=== PATIENT | female | born 1965 | race Hispanic/Latino ===

== ENCOUNTER 2018-03-22 18:09 | Observation (INO) | payer BC ==
[~2018-03-22] VITALS: Ht 154.9 cm; Wt 93.2 kg
[2018-03-22] MEDS ORDERED: KETOROLAC TROMETHAMINE 30 MG/ML VIAL IV STA (19:28)
[2018-03-22] MEDS ORDERED: ALBUTEROL/IPRATROPIUM 3 ML NEB NEB ONE (19:30)
--- NOTE | 2018-03-22 20:19 | Diagnostic Imaging Report ---
EXAM: XR CHEST 2 VIEWS DATE: 03/22/2018 12:00 AM INDICATION: Cough COMPARISON: None FINDINGS: Lines and Tubes: None Heart and Mediastinum: No acute cardiomediastinal findings. Lungs and Pleura: No significant pleural effusion, pneumothorax, or focal consolidation. Minimal opacities in the lung bases statistically represent atelectasis, however, infectious process could have a similar appearance. Bones and Soft Tissues: No acute findings. IMPRESSION: 1. No acute cardiopulmonary findings. Signed by: Dr. Raul Burger MD on 03/22/2018 8:15 PM
[2018-03-22] MEDS ORDERED: CEFTRIAXONE SOD 1 GM/NS 50 ML 50 ML IV ONE (21:15)
[2018-03-22] MEDS ORDERED: POTASSIUM CHLORIDE 10MEQ EA PO ONE (21:30)
[2018-03-22] MEDS ORDERED: ONDANSETRON HCL INJ 2MG/ML 2ML 2 MG/ML VIAL IV PRN (22:15)
--- OUTSIDE RECORDS SUMMARY | 2018-03-22 22:23 | XMS REPORT ---
Author [facility] Address Unknown Phone Unavailable Care Team Providers Care Interior Assemblies Developer Prover Name Role Phone Luis Fernando JOHNSON Unavailable Unavailable Problems This patient has no known problems. Allergies, Adverse Reactions, Alerts This patient has no known allergies or adverse reactions. Medications This patient has no known medications. Results Test Description Test Time Test Comments Text Results Atomic Results Result Comments CXR 2 VIEW - HOPD 2018-03-22 20:15:00 [place] [address] Patient Name: DORENE GRIGGS MR #: [id number] : 1965 Age/Sex: 52/F Req #: [id number] Adm Physician: Ordered by: KRISTINA JOHNSON MD Report #: [id number] Location: [facility] Room/Bed: Procedure: [id number] HOPD/CXR 2 VIEW - HOPD Exam Date: 03/22/18 Exam Time: 2002 REPORT STATUS: Signed EXAM: XR CHEST 2 VIEWS DATE: 03/22/2018 12:00 AM INDICATION: Cough COMPARISON: None FINDINGS: Lines and Tubes: None Heart and Mediastinum: No acute cardiomediastinal findings. Lungs and Pleura: No significant pleural effusion, pneumothorax, or focal consolidation. Minimal opacities in the lung bases statistically represent atelectasis, however, infectious process could have a similar appearance. Bones and Soft Tissues: No acute findings. IMPRESSION: 1. No acute cardiopulmonary findings. Signed by: Dr. Raul Bonilla MD on 03/22/2018 8:15 PM Dictated By: RAUL BONILLA MD 14 Transcribed By: TABBY on 03/22/182014 COPY TO: KRISTINA JOHNSON MD
[2018-03-22] MEDS ORDERED: LOVASTATIN40 MG PO (22:44)
[2018-03-22] MEDS ORDERED: METFORMIN HCL500 MG PO (22:44)
[2018-03-22] MEDS ORDERED: ATENOLOL50 MG PO (22:44)
[2018-03-22] MEDS ORDERED: PAXIL20 MG PO (22:44)
[2018-03-22 22:45] VITALS: BP 125/57
[2018-03-22] MEDS ORDERED: SINGULAIR10 MG (22:48)
[2018-03-22] MEDS ORDERED: CLONAZEPAM1 MG PO (22:48)
[2018-03-22] MEDS ORDERED: trulicity PO (22:48)
--- NOTE | 2018-03-22 23:22 | NUR ---
PT ARRIVED @ THE UNIT [facility] IN A STRETCHER WITH C/O COUGH AND BACK PAIN.ASSESSMENT DONE.AAOX4.NO RESP.DISTRESS.BACK PAIN VOICED 09/20 .IV LAC PATENT.TELE #9 PLACED.BED LOCKED AND IN LOWEST POSITION.ORIENTED TO THE UNIT.PHONE AND CALL LIGHT WITHIN REACH.INSTRUCTED TO CALL FOR ASSISTANCE NEEDED .
[2018-03-22 23:24] VITALS: BP 125/57
--- NOTE | 2018-03-22 23:26 | Diagnostic Imaging Report ---
EXAM: CTA Chest WITH contrast / Pulmonary Embolus Study INDICATION: Pain COMPARISON: None. TECHNIQUE: Angiogram of the chest was obtained using a multidetector helical scanner after administration of IV contrast. Coronal and sagittal reformations were obtained. Pulmonary embolus protocol. IV CONTRAST: 100 mL Isovue-370 COMPLICATIONS: None RADIATION DOSE: Total DLP: 582 mGy*cm Estimated effective dose: (DLP x 0.015 x size factor) mSv CTDIvol has been reviewed. It is below the limits set by the Radiation Protocol Committee (RPC). Appropriate CT dose reduction techniques were utilized. FINDINGS: Lines and Tubes: None. Lower Neck: The visualized thyroid gland is grossly unremarkable with no suspicious or significant nodule identified. Heart and Great Vessels: The aorta and main pulmonary artery measure 36 and 27 mm. respectively. No pulmonary embolus. Lymph Nodes: No suspicious adenopathy. Lungs: Moderate mosaic attenuation with scattered groundglass opacities. No pneumothorax or focal consolidation. Mild septal thickening. Concavity posterior wall trachea consistent with expiratory imaging. Upper abdomen: Enlarged liver with steatosis. Bones and Soft Tissues: No acute findings. IMPRESSION: 1. No pulmonary embolus. 2. Mosaic attenuation likely combination of expiratory imaging and obesity-related hypoventilation syndrome. 3. Steatosis with hepatomegaly. Signed by: Dr. Raul Burger MD on 03/22/2018 11:23 PM
[2018-03-22] MEDS: KCL 20MEQ/.9 SOD CHL 1,000 ML IV SCH (23:45)
[2018-03-22] MEDS: AZITHROMYCIN 500MG/NS 250 ML 250 ML IV SCH (23:46)
[2018-03-22 23:50] VITALS: BP 125/57
[2018-03-23] MEDS ORDERED: ALBUTEROL/IPRATROPIUM 3 ML NEB NEB PRN (00:15)
[2018-03-23] MEDS ORDERED: INFLUENZA VIRUS VAC SPLIT INJ 0.5 ML SYR IM SCH (00:23)
[2018-03-23] MEDS: KETOROLAC TROMETHAMINE 30 MG/ML VIAL IV PRN ×3 (01:01→21:05)
[2018-03-23 05:35] LABS: BASOPHILS # (AUTO) 0.1 (0.0-0.1); EOSINOPHILS # (AUTO) 0.1 (0.0-0.4); EOSINOPHILS % 1.4 % (0.0-6.0); HEMATOCRIT 37.1 % (34.2-44.1); HEMOGLOBIN 12.5 g/dL (12.0-16.0); LYMPHOCYTES # (AUTO) 3.2 (1.0-3.2); LYMPHOCYTES % 39.1 % (18.0-39.1); MEAN CORPUSCULAR HEMOGLOBIN 28.2 pg (28-32); MEAN CORPUSCULAR HGB CONC 33.7 g/dL (31-35); MEAN CORPUSCULAR VOLUME 83.7 fL (81-99); MONOCYTES # (AUTO) 0.7 (0.2-0.8); MONOCYTES % 8.2 % (4.4-11.3); NEUTROPHILS % 50.1 % (38.7-80.0); PLATELET COUNT 183 x10e3/uL (140-360); RED BLOOD COUNT 4.43 x10e6/uL (3.6-5.1); RED CELL DISTRIBUTION WIDTH 14.8 % (11.7-14.4)
[2018-03-23 05:53] LABS: ALANINE AMINOTRANSFERASE 11 IU/L (0-55); ALBUMIN 3.1 g/dL (3.5-5.0); ALKALINE PHOSPHATASE 78 IU/L (40-150); ANION GAP 15.3 mmol/L (8-16); BLOOD UREA NITROGEN 16 mg/dL (7-26); BUN/CREATININE RATIO 21 (6-25); CALCIUM 8.8 mg/dL (8.4-10.2); CARBON DIOXIDE 27 mmol/L (22-29); CHLORIDE 102 mmol/L (98-107); CREATININE, SERUM 0.78 mg/dL (0.57-1.11); EST GLOMERULAR FILTRATION RATE > 60 ML/MIN (60-); GLUCOSE 147 mg/dL (74-118); MAGNESIUM 1.8 MG/DL (1.3-2.1); POTASSIUM 3.3 mmol/L (3.5-5.1); SODIUM 141 mmol/L (136-145)
[2018-03-23] MEDS ORDERED: PNEUMOCOCCAL VACCINE POLYVALENT 23 MCG/0.5 ML VIAL IM SCH (06:06)
[2018-03-23] MEDS ORDERED: POTASSIUM CHLORIDE 10MEQ EA PO ONE (07:00)
--- NOTE | 2018-03-23 07:03 | NUR ---
REPORT GIVEN TO THE ONCOMING RN.WALKING ROUNDS DONE.STABLE CONDITION.
[2018-03-23] MEDS: CEFTRIAXONE SOD 1 GM/NS 50 ML 50 ML IV SCH (08:20)
[2018-03-23 08:22] VITALS: BP 143/75
[2018-03-23 08:39] VITALS: BP 143/75
--- NOTE | 2018-03-23 09:05 | NUR ---
DR. RIGO HIGH. ORDERS REC'D. CALL PLACED TO DR. BIRMIGNHAM TO NOTIFY OF NEW CONSULTATION FOR ABD PAIN AND DIARRHEA.
[2018-03-23] MEDS ORDERED: METFORMIN HCL 500 MG TAB PO SCH (09:30)
--- NOTE | 2018-03-23 09:30 | NUR ---
METFORMIN NOT ADMINISTERED BECAUSE PT HAD IV CONTRAST 0N 03/22/18 @2200.
[2018-03-23] MEDS: KCL 20MEQ/.9 SOD CHL 1,000 ML IV SCH ×2 (09:38→19:42)
--- NOTE | 2018-03-23 11:25 | History and Physical ---
CHIEF COMPLAINT: Right-sided back pain and diarrhea. HISTORY OF PRESENT ILLNESS: The patient is a 52-year-old woman. She reports catching a cold about a week ago. She had some congestion and cough. About 4 days ago, she started having some diarrhea. She also notes pain in her right lower thoracic and costovertebral area. Pain is worse when she moves. She does not report any dyspnea or wheezing. PAST MEDICAL HISTORY 1. Diabetes. 2. Hypertension. 3. No prior history of asthma. 4. No prior history of cardiac problems. PAST SURGICAL HISTORY: Hysterectomy. SOCIAL HISTORY: The patient is still smoking about half a pack a day. She is not an active drinker. She lives in the area with her . ALLERGIES: NO KNOWN DRUG ALLERGIES. REVIEW OF SYSTEMS: She has no fever or headache. She has no neck pain. Oropharynx is normal. Lymphatic examination shows no submandibular, cervical or supraclavicular adenopathy. Cardiac exam reveals a regular rate and rhythm with normal S1 and S2. There are no murmurs or rubs. Auscultation of lungs shows clear breath sounds bilaterally. There is no wheezing. The abdomen is soft and nontender. There is no rebound or guarding. Extremities shows no leg edema or calf tenderness. There is no cyanosis or clubbing. Skin examination is normal. She has no fever. She has no headache. She has no neck pain. She does not report any chest pain. She does have some cough, but no wheezing. She does have some pain in the right costovertebral angle as well as anteriorly in the right upper quadrant. She reports some diarrhea. There is no nausea or vomiting. She has no leg swelling. She has no focal abnormalities. PHYSICAL EXAMINATION VITAL SIGNS: Blood pressure is 143/75 and saturation is 98%, pulse is 80 and respiratory rate is normal. HEENT: Shows no facial swelling or erythema. The nasal mucosa is normal. The oropharynx is normal. LYMPHATIC: Shows no submandibular, cervical or supraclavicular adenopathy. CARDIOVASCULAR: Reveals a regular rate rhythm with normal S1 and S2. There are no murmurs or rubs. RESPIRATORY: Auscultation of lungs shows clear breath sounds bilaterally. There is no wheezing. ABDOMEN: Soft. There is some mild right upper quadrant tenderness. The patient also has some CVA tenderness. EXTREMITIES: There is no leg edema. NEUROLOGIC: Shows no focal abnormalities. LABORATORY DATA: Potassium was 2.7 in the emergency department, but has improved to 3.3. The liver enzymes are within normal limits. Blood counts are within normal limits. RADIOGRAPHIC DATA: CT scan of the chest shows no pulmonary embolism. There is some hepatomegaly with steatosis. She also has some mosaic attenuation on the expiratory images. IMPRESSION 1. Hypokalemia secondary to diarrhea. 2. Right upper quadrant and right costovertebral angle pain. 3. Acute bronchitis. PLAN 1. Replete potassium. 2. GI evaluation for diarrhea and upper abdominal pain. 3. Smoking cessation. Job#: [id number] FIORELLA
--- NOTE | 2018-03-23 12:23 | Consultation ---
DATE OF CONSULTATION: March 23, 2018 HISTORY OF PRESENT ILLNESS: This is 52-year-old who presented to the hospital initially because of problems with pneumonia. Patient apparently has been having some pain on the right side of the abdomen, actually right flank radiating up towards the right frontal area. He has little bit of nausea and vomiting and also little bit of diarrhea which seems to be better at this point. The workup so far revealed that CMP and liver enzymes were normal with potassium of 3.3 and CBC was okay. She did have a CAT scan of the chest on admission which shows fatty liver, otherwise unremarkable. Her medical problem is otherwise significant for high blood pressure, diabetes, and history of colon polyps. MEDICATIONS ON ADMISSION: Including atenolol, clonazepam, lovastatin, metformin, Singulair, and Paxil. ALLERGIES: NONE. SOCIAL HISTORY: No alcohol use. FAMILY HISTORY: Noncontributory. REVIEW OF SYSTEMS: Denies any chest pain at this point. Denies any shortness of breath. Denies any dysphagia or odynophagia. Denies any dysuria or hematuria or any kind of syncopal episode. PHYSICAL EXAMINATION GENERAL: Patient is awake, alert, appears to be stable, and not in any acute distress at this point. VITAL SIGNS: Afebrile currently. HEAD, EYES, EARS, NOSE, AND THROAT: Normocephalic and atraumatic. Sclerae are anicteric. NECK: Supple. HEART: Sounds regular. LUNGS: Clear. ABDOMEN: Soft. There is mild tenderness maybe in the right flank area as well as right upper quadrant area. There is no rebound or mass. EXTREMITIES: There is no clubbing. LAB VALUES: Again, CBC is okay and chemistry was okay except the potassium of 3.3. CAT scan as mentioned before. IMPRESSION 1. Abdominal pain mainly is in the right flank radiating up to right upper quadrant area. Patient has nausea, vomiting, and diarrhea. Possible gastroenteritis but this seems to be better at this point. 2. Pneumonia. RECOMMENDATIONS: Continue on current treatment at this point. I will get a CAT scan of abdomen and pelvis and follow clinically. Job#: [id number] [facility] cc:MD PARISH BORRERO MD
[2018-03-23 12:26] VITALS: BP 129/60
[2018-03-23] MEDS ORDERED: GEMFIBROZIL600 MG PO (15:40)
[2018-03-23 17:31] VITALS: BP 135/76
--- NOTE | 2018-03-23 19:01 | NUR ---
HANDOFF REPORT GIVEN TO ONCOMING EQUITIES ANALYST NURSE.
--- NOTE | 2018-03-23 19:50 | NUR ---
REPORT TAKEN FROM CAITLIN ESTRELLA.WALKING ROUNDS DONE.STABLE CONDITION.
[2018-03-23 20:00] VITALS: BP 150/73
[2018-03-23] MEDS ORDERED: SIMVASTATIN 20 MG TAB PO SCH (21:00)
[2018-03-23] MEDS ORDERED: CLONAZEPAM 1 MG TAB PO SCH (21:00)
[2018-03-23] MEDS ORDERED: MONTELUKAST SODIUM 10 MG TAB PO SCH (21:00)
--- NOTE | 2018-03-23 21:00 | NUR ---
ASSESSMENT DONE.NO RESP.DISTRESS.BACK PAIN VOICED 08/20.MEDICATION GIVEN.BED LOCKED AND IN LOWEST POSITION.PHONE AND CALL LIGHT WITHIN REACH.INSTRUCTED TO CALL FOR ASSISTANCE NEEDED.
[2018-03-23 22:10] VITALS: BP 150/73
[2018-03-23] MEDS ORDERED: SODIUM CHLORIDE 0.9% 50ML 50 ML ONE (22:47)
[2018-03-23] MEDS ORDERED: IOPAMIDOL 370 MG/ML 200 ML INFUS..BTL INJ ONE (22:48)
--- NOTE | 2018-03-23 22:49 | NUR ---
PT WENT FOR CT SCAN IN A WHEEL CHAIR IN STABLE CONDITION .
--- NOTE | 2018-03-23 22:55 | NUR ---
Pt back to the unit after ct scan.
[2018-03-23] MEDS: AZITHROMYCIN 500MG/NS 250 ML 250 ML IV SCH (23:21)
--- NOTE | 2018-03-23 23:40 | NUR ---
Mood changes notified.pt stated that "I did not eat anything after 5.30 pm today. so i am nauseated." medicated with zofran 4mg iv.offered sandwitch to eat. then pt shouted and said "don't talk to me and then continued go out from from here."tried to find out the problem and informed to charge nurse.
[2018-03-24] VITALS: BP 146/78
--- NOTE | 2018-03-24 00:02 | Diagnostic Imaging Report ---
EXAM: CT ABDOMEN W DATE: 03/23/2018 11:08 AM INDICATION: Abdominal pain COMPARISON: None TECHNIQUE: The abdomen was scanned using a multidetector helical scanner. Coronal and sagittal reformations were obtained. CT low dose techniques were utilized, as applicable. IV Contrast: 100 ml Isovue 300/370 FINDINGS: LOWER THORAX: Mosaic attenuation noted at the lung bases. LIVER/BILIARY: Hepatic steatosis with areas of scarring.. No ductal dilatation. GALLBLADDER: Unremarkable SPLEEN: Unremarkable PANCREAS: Unremarkable ADRENALS: Indeterminant 1 cm left adrenal nodule Normal right adrenal. KIDNEYS: 2. Small to characterize left superior renal hypodensity. No suspicious masses or hydronephrosis. GI TRACT: No visualized wall thickening or evidence of obstruction. Appendix is incompletely visualized/imaged. VESSELS: Mild atherosclerotic changes PERITONEUM/RETROPERITONEUM: No free air or fluid LYMPH NODES: None SOFT TISSUES: No acute findings BONES: Scattered degenerative changes IMPRESSION: 1. No acute abnormality in the abdomen. 2. Hepatic steatosis. 3. Indeterminate 1 cm left adrenal nodule. Consider nonemergent follow-up MRI or CT adrenal mass protocol. Signed by: Dr Abbie Sahu MD on 03/23/2018 11:59 PM
--- NOTE | 2018-03-24 00:11 | NUR ---
PT REFUSED TO PUT BED ALARM ON.
--- NOTE | 2018-03-24 02:00 | NUR ---
PT RESTING IN THE BED.
[2018-03-24 04:00] VITALS: BP 138/78
[2018-03-24] MEDS: KETOROLAC TROMETHAMINE 30 MG/ML VIAL IV PRN (04:34)
[2018-03-24] MEDS: KCL 20MEQ/.9 SOD CHL 1,000 ML IV SCH (05:14)
[2018-03-24 05:41] LABS: BASOPHILS # (AUTO) 0.1 (0.0-0.1); BASOPHILS % 0.7 % (0.0-1.0); EOSINOPHILS # (AUTO) 0.1 (0.0-0.4); EOSINOPHILS % 1.9 % (0.0-6.0); HEMATOCRIT 37.8 % (34.2-44.1); HEMOGLOBIN 12.2 g/dL (12.0-16.0); LYMPHOCYTES # (AUTO) 2.2 (1.0-3.2); LYMPHOCYTES % 32.3 % (18.0-39.1); MEAN CORPUSCULAR HEMOGLOBIN 27.8 pg (28-32); MEAN CORPUSCULAR HGB CONC 32.3 g/dL (31-35); MEAN CORPUSCULAR VOLUME 86.1 fL (81-99); MONOCYTES # (AUTO) 0.4 (0.2-0.8); MONOCYTES % 6.1 % (4.4-11.3); NEUTROPHILS % 58.6 % (38.7-80.0); PLATELET COUNT 165 x10e3/uL (140-360); RED BLOOD COUNT 4.39 x10e6/uL (3.6-5.1); RED CELL DISTRIBUTION WIDTH 14.7 % (11.7-14.4)
[2018-03-24 06:23] LABS: ALANINE AMINOTRANSFERASE 11 IU/L (0-55); ALBUMIN 3.1 g/dL (3.5-5.0); ALKALINE PHOSPHATASE 72 IU/L (40-150); ANION GAP 13.3 mmol/L (8-16); BLOOD UREA NITROGEN 10 mg/dL (7-26); BUN/CREATININE RATIO 14 (6-25); CALCIUM 8.5 mg/dL (8.4-10.2); CARBON DIOXIDE 26 mmol/L (22-29); CHLORIDE 105 mmol/L (98-107); CREATININE, SERUM 0.69 mg/dL (0.57-1.11); EST GLOMERULAR FILTRATION RATE > 60 ML/MIN (60-); GLUCOSE 170 mg/dL (74-118); POTASSIUM 4.3 mmol/L (3.5-5.1); SODIUM 140 mmol/L (136-145)
--- NOTE | 2018-03-24 06:50 | NUR ---
Report given to the oncoming rn.walking rounds done.stable condition.
--- NOTE | 2018-03-24 07:20 | NUR ---
MET PATIENT, PATIENT LYING SUPINE, DENIED CHEST PAIN, COMPLAINED OF PAIN BELOW HER RIGHT SHOULDER BLADE, AT BEDSIDE, DISCUSSED POSSIBLE DISCHARGE. BED LOCKED IN LOW POSITION, CALL LIGHT WITHIN REACH, PERSONAL BELONGINGS WITHIN REACH.
[2018-03-24 07:45] VITALS: BP 128/69
[2018-03-24] MEDS ORDERED: ATENOLOL 50 MG TAB PO SCH (09:00)
[2018-03-24] MEDS ORDERED: PAROXETINE HCL 20 MG TAB PO SCH (09:00)
[2018-03-24] MEDS: CEFTRIAXONE SOD 1 GM/NS 50 ML 50 ML IV SCH (09:09)
--- NOTE | 2018-03-24 09:38 | Discharge Summary ---
DISCHARGE DIAGNOSES: 1. Atypical pneumonia. 2. Gastroenteritis. 3. Hypokalemia. 4. Acute bronchitis. CONSULTING PHYSICIAN: Dr. Boles of gastroenterology. RADIOGRAPHIC DATA: 1. CT scan of the abdomen and pelvis shows no acute abnormality. There is some fatty liver and a small left adrenal nodule. 2. CT scan of the chest shows no pulmonary embolus. There is some mosaic pattern on inspiration. HISTORY OF PRESENT ILLNESS: The patient is a 52-year-old woman. She got a cold about a week ago. She had some congestion and cough. She also noted diarrhea and nausea. She had some pain in her right CVA angle. She came into the ER and then discovered a potassium of 2.7. HOSPITAL COURSE: The patient was admitted. She received supplemental potassium. She continued to have some pain with movement in the right costovertebral angle and lower thorax. A CT scan of the chest showed no pulmonary embolism, but did show some changes consistent with atypical pneumonia. The patient was seen by gastroenterology for nausea and vomiting. She has some dyspepsia. She had a CT scan of the abdomen and pelvis that was nondiagnostic. She felt better at the time of discharge. DISPOSITION: The patient will be discharged home. She will take some antibiotics and will follow up with Dr. Boles as well as with Dr. David Mcclelland. WALE SIERRA MD Job#: [id number] cc:DAVID MCCLELLAND MD
--- NOTE | 2018-03-24 11:20 | NUR ---
PATIENT COMPLAINED OF BEING DISCHARGED, DISCUSSED TEST COMPLETED WITH PATIENT, PATIENT STATED, THAT SHE WAS HAPPY WITH THE RESULTS OF THE TESTS COMPLETED. DISCUSSED DISCHARGE ,MEDICATIONS WITH THE PATIENT.
[2018-03-24 11:21] VITALS: BP 128/69
[2018-03-24 11:35] VITALS: BP 124/67
[2018-03-24] MEDS ORDERED: LEVAQUIN500 MG PO (11:52)
== END 2018-03-24 12:47 | disposition home or self-care (01) ==
LOC: FSED 18:09 → ERHOLD 22:21 → MED/SURG 23:19
PROVIDERS: ADMIT Internal Medicine Critical Care Medicine; ATTEND Internal Medicine Critical Care Medicine
DX: J18.9 Pneumonia, unspecified organism (principal); E11.9 Type 2 diabetes mellitus without complications; I10 Essential (primary) hypertension; E78.5 Hyperlipidemia, unspecified; E87.6 Hypokalemia; F17.210 Nicotine dependence, cigarettes, uncomplicated; J20.9 Acute bronchitis, unspecified; K52.9 Noninfective gastroenteritis and colitis, unspecified; K76.0 Fatty (change of) liver, not elsewhere classified; Z79.84 Long term (current) use of oral hypoglycemic drugs
CPT/HCPCS: 36415 ×2; 71046; 71260; 74160; 80053 ×2; 82948 ×2; 83735; 85025 ×2; 93005; 99284; G0378 ×3; J0456 ×2; J0696 ×2; J1885 ×3; J2405; Q9967